=== PATIENT | male | born 2000 | race Caucasian/White ===

== ENCOUNTER 2020-05-06 19:21 | Emergency (ER) | payer OTHER ==
[~2020-05-06] VITALS: Ht 177.8 cm; Wt 75.0 kg
--- NOTE | 2020-05-06 19:32 | PHYS DOC ---
General Adult EDM: Chief Complaint: ANKLE PROBLEM HPI: HPI: ".. I was play paint ball.. and I twisted this Lt. ankle really bad.. I can't bear wt. on it.. it even hurts upper leg.. and my Lt. 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 foot, lower leg and ankle injury. Patient states he inverted ankle and heard a pop and developed severe pain in foot ankle and midway up left leg. Distal neurovascular is equal to right leg. Capillary refill is equal to her right foot. Does have pain on foot squeeze. Does have obvious edema at lateral malleolus. Does have laxity on anterior draw of left ankle as compared to right ankle. Does have tenderness along lateral portion of left leg. Patient denies other injury. Patient normally follows at [facility] [place]. No history of recent travel outside the [place] area. Patient denies any history of specific ill contacts. Review of Systems: Review of Systems: Constitutional: Denies fever or chills Eyes: Denies change in visual acuity HENT: Denies nasal congestion or sore throat Respiratory: Denies cough or shortness of breath Cardiovascular: Denies chest pain or edema GI: Denies abdominal pain, nausea, vomiting, bloody stools or diarrhea : Denies dysuria Musculoskeletal: Reports severe pain in left ankle and foot. Unable to bear weight Integument: Denies rash Neurologic: Denies headache, focal weakness or sensory changes Endocrine: Denies polyuria or polydipsia Lymphatic: Denies swollen glands Psychiatric: Denies depression or anxiety Family History: Family History: Noncontributory to presentation Current Medications: Current Meds: See nursing for home meds Allergies: Allergies: No known drug allergies Physical Exam: PE: Constitutional: Well developed, well nourished, no acute distress, non-toxic appearance. [] HENT: Normocephalic, atraumatic, bilateral external ears normal, oropharynx moist, no oral exudates, nose normal. [] Eyes: PERRLA, EOMI, conjunctiva normal, no discharge. [] Neck: Normal range of motion, no tenderness, supple, no stridor. [] Cardiovascular:Heart rate regular rhythm, no murmur [] Lungs & Thorax: Bilateral breath sounds clear to auscultation [] Abdomen: Bowel sounds normal, soft, no tenderness, no masses, no pulsatile masses. [] Skin: Warm, dry, no erythema, no rash. [] Back: No tenderness, no CVA tenderness. [] Extremities: No tenderness, no cyanosis, no clubbing, ROM intact, no edema. [] Neurologic: Alert and oriented X 3, normal motor function, normal sensory function, no focal deficits noted. [] Psychologic: Affect normal, judgement normal, mood normal. [] EKG: EKG: [] Radiology/Procedures: Radiology/Procedures: [address] [address] IMAGING REPORT Signed PATIENT: VICKIE PETERSON DACCOUNT: [id number] : 2000 LOCATION: ER AGE: 20 SEX: M EXAM STATUS: REG ER ORD. PHYSICIAN: RIYA VICTORIA MD REASON: injury PROCEDURE: FOOT LEFT 3V EXAM: AP and lateral views of the left tibia/fibula AP, oblique and lateral views of the left ankle AP, oblique and lateral views of the left foot DATE: 05/06/2020 7:33 PM INDICATION: Reason: injury / Spl. Instructions: / History: COMPARISON: No Prior FINDINGS: Soft tissue swelling about the left ankle without evidence for acute fracture or dislocation. Ankle mortise is congruent. Talar dome is intact. Mild forefoot soft tissue swelling. No evidence of acute fracture or dislocation. IMPRESSION: No evidence of acute fracture or dislocation. Soft tissue swelling about the left ankle. Electronically signed by: Karri Laguna MD (05/06/2020 9:14 PM) [facility] DICTATED AND SIGNED BY: KARRI LAGUNA MD DATE: 05/06/202113 CC: RIYA VICTORIA MD; PCP,NO ~ [address] [address] IMAGING REPORT Signed PATIENT: VICKIE PETERSON DACCOUNT: [id number] : 2000 LOCATION: ER AGE: 20 SEX: M EXAM STATUS: REG ER ORD. PHYSICIAN: RIYA VICTORIA MD REASON: injury PROCEDURE: ANKLE LEFT 3V EXAM: AP and lateral views of the left tibia/fibula AP, oblique and lateral views of the left ankle AP, oblique and lateral views of the left foot DATE: 05/06/2020 7:33 PM INDICATION: Reason: injury / Spl. Instructions: / History: COMPARISON: No Prior FINDINGS: Soft tissue swelling about the left ankle without evidence for acute fracture or dislocation. Ankle mortise is congruent. Talar dome is intact. Mild forefoot soft tissue swelling. No evidence of acute fracture or dislocation. IMPRESSION: No evidence of acute fracture or dislocation. Soft tissue swelling about the left ankle. Electronically signed by: Karri Laguna MD (05/06/2020 9:14 PM) [place] DICTATED AND SIGNED BY: KARRI LAGUNA MD DATE: 05/06/202113 CC: RIYA VICTORIA MD; PCP,NO ~ [][place] [address] IMAGING REPORT Signed PATIENT: VICKIE PETERSON DACCOUNT: [id number] : 2000 LOCATION: ER AGE: 20 SEX: M EXAM STATUS: REG ER ORD. PHYSICIAN: RIYA VICTORIA MD REASON: pain PROCEDURE: TIBIA FIBULA RIGHT EXAM: AP and lateral views of the right tibia/fibula DATE: 05/06/2020 7:47 PM INDICATION: Reason: pain / Spl. Instructions: / History: COMPARISON: No Prior FINDINGS/ IMPRESSION: No evidence of acute fracture or dislocation. Electronically signed by: Karri Laguna MD (05/06/2020 9:14 PM) [place] DICTATED AND SIGNED BY: KARRI LAGUNA MD DATE: 05/06/202113 CC: RIYA VICTORIA MD; PCP,NO ~ Heart Score: Risk Factors: Risk Factors: DM, Current or recent (<one month) smoker, HTN, HLP, family history of CAD, obesity. Risk Scores: Score 0 - 3: 2.5% MACE over next 6 weeks - Discharge Home Score 4 - 6: 20.3% MACE over next 6 weeks - Admit for Clinical Observation Score 7 - 10: 72.7% MACE over next 6 weeks - Early Invasive Strategies Course & Med Decision Making: Course & Med Decision Making Pertinent Labs and Imaging studies reviewed. (See chart for details) Patient apply ice as needed. Elevate, wear a brace, use crutches, and take Tylenol and ibuprofen for pain. For marked pain may take Vicoprofen 4 times a day. Follow-up primary care. Consider matt-ray in 2 weeks if still very tender evaluate for missed fracture. Impression: 1. Left foot and ankle sprain 2. Left tib-fib sprain [] Dragon Disclaimer: Dragon Disclaimer: This electronic medical record was generated, in whole or in part, using a voice recognition dictation system. Departure Departure: Referrals: PCP,NO (PCP) Scripts Hydrocodone/Ibuprofen (HYDROCODONE-IBUPROFEN 7.5-200 ) 1 Each Tablet 1 TAB PO PRN Q6HRS PRN for PAIN, #30 TAB 0 Refills Prov: RIYA VICTORIA MD 05/06/20 RIYA VICTORIA MD May 06, 2020 19:32
[2020-05-06 19:40] VITALS: BP 99/74
[2020-05-06] MEDS ORDERED: HYDR-1179 PO (19:51)
[2020-05-06] MEDS ORDERED: IBUPROFEN 600 MG TABLET. PO ONE (20:00)
--- NOTE | 2020-05-06 21:17 | RAD ---
EXAM: AP and lateral views of the right tibia/fibula DATE: 05/06/2020 7:47 PM INDICATION: Reason: pain / Spl. Instructions: / History: COMPARISON: No Prior FINDINGS/ IMPRESSION: No evidence of acute fracture or dislocation. Electronically signed by: Karri Laguna MD (05/06/2020 9:14 PM) [place]
--- NOTE | 2020-05-06 21:17 | RAD ---
EXAM: AP and lateral views of the left tibia/fibula AP, oblique and lateral views of the left ankle AP, oblique and lateral views of the left foot DATE: 05/06/2020 7:33 PM INDICATION: Reason: injury / Spl. Instructions: / History: COMPARISON: No Prior FINDINGS: Soft tissue swelling about the left ankle without evidence for acute fracture or dislocation. Ankle mortise is congruent. Talar dome is intact. Mild forefoot soft tissue swelling. No evidence of acute fracture or dislocation. IMPRESSION: No evidence of acute fracture or dislocation. Soft tissue swelling about the left ankle. Electronically signed by: Karri Laguna MD (05/06/2020 9:14 PM) [place]
== END 2020-05-06 21:25 | disposition home or self-care (01) ==
LOC: ER 19:21
DX: S93.402A Sprain of unspecified ligament of left ankle, initial encounter (principal); S83.8X2A Sprain of other specified parts of left knee, initial encounter; S83.422A Sprain of lateral collateral ligament of left knee, initial encounter; X50.9XXA Other and unspecified overexertion or strenuous movements or postures, initial encounter; Y93.89 Activity, other specified; Y92.89 Other specified places as the place of occurrence of the external cause; Y99.8 Other external cause status
CPT/HCPCS: 29515; 73590; 73610; 73630; 99284

== ENCOUNTER 2020-05-08 17:36 | Emergency (ER) | payer OTHER ==
[~2020-05-08] VITALS: Ht 177.8 cm; Wt 75.0 kg
[~2020-05-08 17:36] MED LIST: HYDR-1179 PO
[2020-05-08 17:40] VITALS: BP 120/73
--- NOTE | 2020-05-08 18:10 | PHYS DOC ---
Past History Past Medical History: No Pertinent History Past Surgical History: No Surgical History Alcohol Use: None General Adult EDM: Chief Complaint: ANKLE PROBLEM HPI: HPI: ".. I was here yesterday .. I had twisted my ankle while playing paint ball... It just today foots more purple and seems more swollen.... 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 Patient did have more ecchymosis of midfoot and swelling. Distal capillary refill is equal to right foot. 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 No upper leg tenderness. Reviewed films no obvious fracture but obvious edema. Patient to continue crutches, ice, and elevation above his heart. Tylenol and ibuprofen for pain. Most likely will need Ortho follow-up and even possible MRI. Plan on repeat x-ray and 2 weeks if still markedly tender. Review of Systems: Review of Systems: Constitutional: Denies fever or chills Eyes: Denies change in visual acuity HENT: Denies nasal congestion or sore throat Respiratory: Denies cough or shortness of breath Cardiovascular: Denies chest pain or edema GI: Denies abdominal pain, nausea, vomiting, bloody stools or diarrhea : Denies dysuria Musculoskeletal: Complains of left foot and ankle pain, increased edema Integument: Denies rash Neurologic: Denies headache, focal weakness or sensory changes Endocrine: Denies polyuria or polydipsia Lymphatic: Denies swollen glands Psychiatric: Denies depression or anxiety Family History: Family History: Noncontributory Current Medications: Current Meds: See nursing for home meds Allergies: Allergies: Allergies Coded Allergies Type Severity Reaction Last Updated Verified No Known Drug Allergies 05/06/20 No Physical Exam: PE: Constitutional: Well developed, well nourished, no acute distress, non-toxic appearance. [] HENT: Normocephalic, atraumatic, bilateral external ears normal, oropharynx moist, no oral exudates, nose normal. [] Eyes: PERRLA, EOMI, conjunctiva normal, no discharge. Glasses Neck: Normal range of motion, no tenderness, supple, no stridor. [] Cardiovascular:Heart rate regular rhythm, no murmur [] Lungs & Thorax: Bilateral breath sounds clear to auscultation [] Abdomen: Bowel sounds normal, soft, no tenderness, no masses, no pulsatile masses. [] Skin: Warm, dry, no erythema, no rash. [] Back: No tenderness, no CVA tenderness. [] Extremities: No tenderness, no cyanosis, no clubbing, ROM intact, no edema. Except findings in left ankle and foot Neurologic: Alert and oriented X 3, normal motor function, normal sensory function, no focal deficits noted. [] Psychologic: Affect normal, judgement normal, mood normal. [] EKG: EKG: [] Radiology/Procedures: Radiology/Procedures: Rereviewed x-ray films and final radiology report [] Heart Score: Risk Factors: Risk Factors: DM, Current or recent (<one month) smoker, HTN, HLP, family history of CAD, obesity. Risk Scores: Score 0 - 3: 2.5% MACE over next 6 weeks - Discharge Home Score 4 - 6: 20.3% MACE over next 6 weeks - Admit for Clinical Observation Score 7 - 10: 72.7% MACE over next 6 weeks - Early Invasive Strategies Course & Med Decision Making: Course & Med Decision Making Pertinent Labs and Imaging studies reviewed. (See chart for details) Patient continue elevation above the heart, wear splint, use crutches, ice packs as needed. And Tylenol and ibuprofen for pain. If Marked pain may use Vicoprofen. Must follow-up with primary care. Consider orthopedic referral. Chriss-ray in 2 weeks may need MRI. Impression: 1. Left foot and ankle sprain [] Rosa Disclaimer: Rosa Disclaimer: This electronic medical record was generated, in whole or in part, using a voice recognition dictation system. Departure Departure: Impression: Primary Impression: Ankle and foot joint derangement Disposition: 01 DC HOME SELF CARE/HOMELESS Condition: GUARDED Patient Instructions: Ankle Sprain, [id number], Foot Sprain-Brief Additional Instructions: Reviewed films and radiology reviewed films. No obvious fracture. Continue elevation above the heart. Continue splint. Continue crutches. Take tylenol and ibuprofen for pain. Marked pain take Vicoprofen. You do have more edema in foot. Must keep leg elevated. Consider repeat x ray in two weeks. You did have findings of marked ligament instability on initial exam. Will need follow- up with Ortho. Rosa Disclaimer This chart was dictated in whole or in part using Voice Recognition software in a busy, high-work load, and often noisy Emergency Department environment. It may contain unintended and wholly unrecognized errors or omissions. RIYA VICTORIA MD May 08, 2020 18:10
== END 2020-05-08 18:15 | disposition home or self-care (01) ==
LOC: ER 17:36
DX: S99.912A Unspecified injury of left ankle, initial encounter (principal); S99.922A Unspecified injury of left foot, initial encounter; X50.9XXA Other and unspecified overexertion or strenuous movements or postures, initial encounter; Y93.89 Activity, other specified; Y92.89 Other specified places as the place of occurrence of the external cause; Y99.8 Other external cause status
CPT/HCPCS: 99282

== ENCOUNTER 2020-05-09 14:51 | Emergency (ER) | payer OTHER ==
[~2020-05-09] VITALS: Ht 177.8 cm; Wt 75.0 kg
[2020-05-09 15:43] VITALS: BP 123/71
--- NOTE | 2020-05-09 17:13 | RAD ---
Exam: Left ankle 3 views. Left foot 3 views INDICATION: Reinjured ankle/foot, fall TECHNIQUE: Frontal, lateral and oblique views of the left ankle and left foot Comparisons: None FINDINGS: Ankle: Mild soft tissue swelling at the left ankle. Bone mineralization is normal. Joint spaces are well-maintained. No acute or healed fractures. Foot: Bone mineralization is normal. No acute or healed fractures. Soft tissues are unremarkable. Joint spaces are well-maintained. IMPRESSION: 1. Mild soft tissue swelling at the left ankle without underlying osseous abnormality identified. 2. No acute osseous abnormality of the left foot Electronically signed by: Cecilia Betancourt MD (05/09/2020 5:10 PM) [place]
--- NOTE | 2020-05-09 17:34 | PHYS DOC ---
Past History Past Medical History: No Pertinent History Past Surgical History: No Surgical History Alcohol Use: None Adult General Chief Complaint Chief Complaint: ANKLE PROBLEM [facility] HPI Patient is a 20-year-old male presenting with left ankle pain. Patient has been seen numerous times in past 72 hours for this condition as he was previously diagnosed with left ankle sprain and currently pending outpatient orthopedic follow-up tomorrow. Nonetheless, patient was attempting to ambulate today when he fell utilizing his crutches. He fell backwards hitting his tailbone and subsequently hitting base of left heel. He reports hearing a pop and presents today for ongoing pain. He is concerned that he might have broken something again during this fall. He is requesting radiograph imaging. No new changes in motor and/or sensory function versus examination yesterday Review of Systems Review of Systems Fourteen body systems of review of systems have been reviewed. See HPI for pertinent positives and negative responses, other robledo all other systems are negative, non-pertinent or non-contributory Allergies Allergies Allergies Coded Allergies Type Severity Reaction Last Updated Verified No Known Drug Allergies 05/06/20 No Physical Exam Physical Exam Constitutional: Well developed, well nourished, no acute distress, non-toxic appearance. HENT: Normocephalic, atraumatic, bilateral external ears normal, oropharynx moist, no oral exudates, nose normal. Eyes: PERRLA, EOMI, conjunctiva normal, no discharge. Neck: Normal range of motion, no tenderness, supple, no stridor. Cardiovascular: Heart rate regular, sinus rhythm, no murmurs rubs or gallops Lungs & Thorax: Bilateral breath sounds clear to auscultation Abdomen: Bowel sounds normal, soft, no tenderness, no masses, no pulsatile masses. Nonsurgical abdomen, no peritoneal signs Skin: Warm, dry, no erythema, no rash. Back: No tenderness, no CVA tenderness. Extremities: No cyanosis, no clubbing. Tenderness over ATF ligament palpated. No other palpable abnormalities. Mild soft tissue edema consistent with ankle sprain present in left foot without any other obvious abnormalities. Decreased range of motion globally due to pain. Intact pedal pulses bilaterally, cap refill less than 3 seconds Neurologic: Alert and oriented X 3, grossly normal motor & sensory function, no focal deficits noted. Psychologic: Affect normal, judgement normal, mood normal. Current Patient Data Vital Signs Vital Signs Date Time Temp Pulse Resp B/P (MAP) Pulse Ox O2 Delivery O2 Flow Rate FiO2 05/09/20 15:43 98.1 80 20 123/71 (88) 97 Room Air EKG EKG [] Radiology/Procedures Radiology/Procedures PROCEDURE: ANKLE LEFT 3V Exam: Left ankle 3 views. Left foot 3 views INDICATION: Reinjured ankle/foot, fall TECHNIQUE: Frontal, lateral and oblique views of the left ankle and left foot Comparisons: None FINDINGS: Ankle: Mild soft tissue swelling at the left ankle. Bone mineralization is normal. Joint spaces are well-maintained. No acute or healed fractures. Foot: Bone mineralization is normal. No acute or healed fractures. Soft tissues are unremarkable. Joint spaces are well-maintained. IMPRESSION: 1. Mild soft tissue swelling at the left ankle without underlying osseous abnormality identified. 2. No acute osseous abnormality of the left foot Electronically signed by: Cecilia Betancourt MD (05/09/2020 5:10 PM) [facility] Heart Score Risk Factors: Risk Factors: DM, Current or recent (<one month) smoker, HTN, HLP, family history of CAD, obesity. Risk Scores: Risk Factors: DM, Current or recent (<one month) smoker, HTN, HLP, family history of CAD, obesity. Course & Med Decision Making Course & Med Decision Making Pertinent Labs and Imaging studies reviewed. (See chart for details) Discussed no new abnormality to previously diagnosed left ankle sprain. Advised patient to continue supportive care practices and follow-up with orthopedics tomorrow as previously instructed Strict return precautions were discussed at length with good understanding by patient, all questions and concerns addressed prior to ER departure in stable condition Rosa Disclaimer Rosa Disclaimer This electronic medical record was generated, in whole or in part, using a voice recognition dictation system. Departure Departure: Impression: Primary Impression: Left ankle sprain Disposition: 01 DC HOME SELF CARE/HOMELESS Condition: STABLE Referrals: PCP,UNKNOWN (PCP) Patient Instructions: RICE - Routine Care for Injuries Additional Instructions: As instructed prior to ER departure please keep your follow-up with orthopedic surgery tomorrow in outpatient setting as previously scheduled Please continue supportive care therapies such as rice protocol and utilizing Tylenol and/or ibuprofen as needed for pain Is a pleasure to take care of you and I wish you a speedy recovery JUAN MANUEL BARLOW DO May 09, 2020 17:34
== END 2020-05-09 17:35 | disposition home or self-care (01) ==
LOC: ER 14:51
DX: S93.402D Sprain of unspecified ligament of left ankle, subsequent encounter (principal); W18.09XD Striking against other object with subsequent fall, subsequent encounter
CPT/HCPCS: 73610; 73630; 99284

== ENCOUNTER 2021-07-01 19:14 | Emergency (ER) | payer OTHER ==
[~2021-07-01] VITALS: Ht 175.3 cm; Wt 53.3 kg
--- NOTE | 2021-07-01 20:27 | PHYS DOC ---
Past History Past Medical History: No Pertinent History Past Surgical History: Other Additional Past Surgical Histo: right ear surgery Alcohol Use: None General Adult EDM: Chief Complaint: MULTIPLE COMPLAINTS HPI: HPI: Patient is a 21-year-old male who presents with congestion and sore throat. Patient received a Covid test last week at urgent care but is unable to obtain results. Patient is unable to return to work without a negative Covid test. Patient is denying any concerns at this time and all symptoms have improved. Denies shortness of breath, chest pain, fevers. Review of Systems: Review of Systems: ROS At least 10 ROS systems have been reviewed and are negative except as documented in the HPI. General: Negative except as outlined in HPI above. Skin: Negative except as outlined in HPI above. HEENT: Negative except as outlined in HPI above. Neck: Negative except as outlined in HPI above. Respiratory: Negative except as outlined in HPI above.. Cardiovascular: Negative except as outlined in HPI above. Abdomen: Negative except as outlined in HPI above. : Negative except as outlined in HPI above. Back/MSK: Negative except as outlined in HPI above. Neuro: Negative except as outlined in HPI above. Psych: Negative except as outlined in HPI above. Allergies: Allergies: Allergies Coded Allergies Type Severity Reaction Last Updated Verified No Known Drug Allergies 05/06/20 No Physical Exam: PE: Constitutional: Well developed, well nourished, no acute distress, non-toxic appearance. [] HENT: Normocephalic, atraumatic, bilateral external ears normal, oropharynx moist, oropharynx red, no oral exudates, rhinorrhea Eyes: PERRLA, EOMI, conjunctiva normal, no discharge. [] Neck: Normal range of motion, no tenderness, supple, no stridor. [] Cardiovascular:Heart rate regular rhythm, no murmur [] Lungs & Thorax: Bilateral breath sounds clear to auscultation [] Abdomen: Bowel sounds normal, soft, no tenderness, no masses, no pulsatile masses. [] Skin: Warm, dry, no erythema, no rash. [] Back: No tenderness, no CVA tenderness. [] Extremities: No tenderness, no cyanosis, no clubbing, ROM intact, no edema. [] Neurologic: Alert and oriented X 3, normal motor function, normal sensory function, no focal deficits noted. [] Psychologic: Affect normal, judgement normal, mood normal. [] Current Patient Data: Vital Signs: Vital Signs Date Time Temp Pulse Resp B/P (MAP) Pulse Ox O2 Delivery O2 Flow Rate FiO2 07/01/21 19:55 97.9 71 16 100/61 (74) 100 Room Air EKG: EKG: [] Radiology/Procedures: Radiology/Procedures: [] Heart Score: C/O Chest Pain: No Risk Factors: Risk Factors: DM, Current or recent (<one month) smoker, HTN, HLP, family history of CAD, obesity. Risk Scores: Score 0 - 3: 2.5% MACE over next 6 weeks - Discharge Home Score 4 - 6: 20.3% MACE over next 6 weeks - Admit for Clinical Observation Score 7 - 10: 72.7% MACE over next 6 weeks - Early Invasive Strategies Course & Med Decision Making: Course & Med Decision Making Pertinent Labs and Imaging studies reviewed. (See chart for details) [] 21-year-old male presents with request for Covid test. Patient states he is unable to return to work until negative Covid test. Advised patient it would take 24 to 48 hours to receive results. Patient states he understands. Patient is afebrile, hemodynamically stable. No complaints at this time. Corensic Disclaimer: Corensic Disclaimer: This electronic medical record was generated, in whole or in part, using a voice recognition dictation system. Departure Departure: Impression: Primary Impression: Encounter for laboratory testing for COVID-19 virus Disposition: HOME / SELF CARE / HOMELESS Condition: STABLE Referrals: PCP,UNKNOWN (PCP) Patient Instructions: Sore Throat, Pdpa-by-Bemt Additional Instructions: EMERGENCY DEPARTMENT GENERAL DISCHARGE INSTRUCTIONS Thank you for coming to [facility] (ED) today and trusting us with you care. We trust that you had a positivie experience in our Emergency Department. If you wish to speak to the department management, you may call the director at [phone]. YOUR FOLLOW UP INSTRUCTIONS ARE FOLLOWS: 1. Do you have a private Doctor? If you do not have a private doctor, please ask for a resource list of physicians or clinics that may be able to assist you with follow up care. 2. The Emergency Physician has interpreted your x-rays. The X-Ray specialist will also review them. If there is a change in the findings, you will be notified in 48 hours when at all possible. 3. A lab test or culture has been done, your results will be reviewed and you will be notified if you need a change in treatment. ADDITIONAL INSTRUCTIONS AND INFORMATION: 1. Your care today has been supervised by a physician who is specially trained in emergency care. Many problems require more than one evaluation for a complete diagnosis and treatment. We recommend that you schedule your follow up appointment as recommended to ensure complete treatment of you illness or injury. If you are unable to obtain follow up care and continue to have a problem, or if your condition worsens, we recommend that you return to the ED. 2. We are not able to safely determine your condition over the phone nor are we able to give sound medical advice over the phone. For these safety reasons, if you call for medical advice we will ask you to come to the ED for further evaluation. 3. If you have any questions regarding these discharge instructions please call the ED at [phone]. SAFETY INFORMATION: In the interest of safety, wellness, and injury prevention; we encourage you to wear your sealbelt, if you smoke; quite smoking, and we encourage family to use a protective helmet for bicycling and other sporting events that present an increased risk for head injury. IF YOUR SYMPTOMS WORSEN OR NEW SYMPTOMS DEVELOP, OR YOU HAVE CONCERNS ABOUT YOUR CONDITION; OR IF YOUR CONDITION WORSENS WHILE YOU ARE WAITING FOR YOUR FOLLOW UP APPOINTMENT; EITHER CONTACT YOUR PRIMARY CARE DOCTOR, THE PHYSICIAN WHOSE NAME AND NUMBER YOU WERE GIVEN, OR RETURN TO THE ED IMMEDIATELY. You have been tested for or diagnosed with COVID-19. It is an infection caused by a new type of coronavirus. COVID-19 will cause cold-like or mild flu symptoms in most. It can cause more severe symptoms like problems breathing in some. There is no treatment for COVID-19. The body will clear the infection over time. Self-care will help to ease discomfort. Steps to Take: Self-Care Rest as needed. Healthy habits may help you feel better. Steps include: Choose healthy foods including fruits and vegetables. Drink water throughout the day. Get plenty of sleep each night. If you smoke, try to quit. It may ease breathing. Avoid alcohol. Keep Others Healthy The virus can spread to others. Droplets are released every time you sneeze or cough. The droplets can get into the mouth, nose, or eyes of people near you and lead to infection. To lower the chances of spreading COVID-19 to others: Stay at home until your doctor has said it is safe to leave. If you tested positive this will mean staying isolated until both of the following are true: At least 7 days have passed since the start of illness. You are free of fever for at least 72 hours without the use of medicine. During this time: - Avoid public areas, events, or transportation. Do not return to work or school until your doctor has said it is safe to do so. - Call ahead if you need to go to a medical center. Let them know you may have COVID-19. It will help them guide you where to go. They may also ask you to wear a facemask when you come to the office. - If you call for emergency medical services, let them know you may have COVID- 19. While at home: - Try to avoid close contact with others. Stay about 6 feet away. - If possible, spend most of your time in a separate room from others. - Use a face mask if you will be in close contact with others such as sharing a room or vehicle. - Have someone wipe down common surfaces in the home. Use household technology consultant every day on areas like doorknobs, counters, or sinks. - Cough or sneeze into a tissue. Throw the tissue away right after use. If a ti ssue is not available, cough or sneeze into your elbow. - Wash your hands often. Wash them after sneezing or coughing. Use soap and water and wash for at least 20 seconds. Alcohol based hand roll cleaner can be used if soap and water is not available. - Do not prepare food for others. Avoid sharing personal items like forks, spoons, or toothbrushes. - Avoid close contact with pets while you are sick. There is no evidence of the virus passing to pets. This is a safety step until more is known about this virus. Isolation can be frustrating. Social interaction can help. Keep in touch with friends and family through phone and tech options. You can still interact with others in your home, just keep a safe distance of about 6 feet. Follow-up: Your doctors office will check in with you to see if there are any changes in your health. You may be asked to keep track of symptoms to share with them. They will also let you know when you are clear to be in public again. Problems to Look Out For: Contact your doctor if your recovery is not going as you expect. Get emergency care if you have problems such as: - Trouble breathing - Nonstop chest pain or pressure - Changes in awareness, confusion, or problems waking - Lips or face have bluish color - Worsening of symptoms If you think you have an emergency, call for emergency medical services right away. As taken from [facility] EMMY REAL APRN Jul 01, 2021 20:27
[2021-07-01 20:32] VITALS: BP 104/62
== END 2021-07-01 20:35 | disposition home or self-care (01) ==
LOC: ER 19:14
DX: J02.9 Acute pharyngitis, unspecified (principal); R09.81 Nasal congestion; Z20.822 Contact with and (suspected) exposure to COVID-19
CPT/HCPCS: 99283; C9803; U0003